=== PATIENT | female | born 1940 | race Caucasian/White ===

== ENCOUNTER 2016-10-13 02:24 | Day surgery (SDC) | payer MEDICARE ==
[~2016-10-13] VITALS: Ht 157.5 cm; Wt 82.0 kg
[~2016-10-13 02:24] MED LIST: ALBU8.5H2 INHALATION; AMLO10TA3 PO; ATEN50TA PO; CITA20TA11 PO; FLUT12AE8 IH; HYDR25TA4 PO; LEVO88TA4 PO; LISI10TA PO; NITR0.4T6 SL; OMEP40CA36 PO; SLO64 PO; VITAMIN D PO
[2016-10-13] MEDS ORDERED: fentaNYL-PF 50 mCg/mL 2 mL Inj IVPUSH PRN (06:00)
[2016-10-13] MEDS ORDERED: Sodium Chloride LOK Flush 10 mL Syringe IV PRN (06:00)
[2016-10-13 10:09] VITALS: BP 138/69; PULSE 65; RESP 16; O2SAT 99
[2016-10-13] MEDS ORDERED: 0.9% Sodium Chloride 1,000 ML IV ONE (11:07)
[2016-10-13 11:24] VITALS: BP 101/56; PULSE 57; RESP 16; O2SAT 98
--- NOTE | 2016-10-13 11:24 | PCM.ENDCOL ---
Colonoscopy Date of Service: Oct 13, 2016 Physician Norberto Milan MD Pre Procedure Diagnosis: Screening Post Procedure Dx & Findings: Polyp hemorrhoids diverticula Procedure Colonoscopy PROCEDURE IN DETAIL: Prep adequate Withdrawal time 13 minutes After unremarkable rectal examination the Olympus video colonoscope was inserted patient's anal canal and was advanced to cecum. Landmarks were identified including the ileocecal valve and appendiceal orifice. Scope was withdrawn systematically. Visualized colonic mucosa showed healthy shiny mucosa with normal healthy-appearing vasculature. In the rectosigmoid junction, there was a 1 mm polyp which was removed completely using cold forceps In the sigmoid colon there are several medium-sized diverticuli. In the rectum retroflexion was done which showed hemorrhoids. Anal canal was inspected carefully on the way out and hemorrhoids noted. Impression Polyp 1. Complete removal Diverticuli Hemorrhoids Recommendation Repeat colonoscopy 5 years Diverticular diet Presedation Assessment Risks and Benefits Informed consent was obtained from the patient after all risks and benefits including but not limited to drug reaction, infection, pain, bleeding, perforation, as well as alternatives were discussed. Patient monitoring Continuous pulse oximetry, cardiac monitoring, blood pressure monitoring, IV access, and oxygen at 2L per nasal cannula. Periprocedural Fentanyl: Fentanyl 100mcg Incrementally Midazolam: Midazolam 5mg Incrementally Complications There were no periprocedural complications identified. Post Procedure Plan Post Procedure Recommendations 1. Restrict activities today. 2. Resume normal activities in the morning. 3. Resume medications. 4. Patient informed of normal post procedure side effects as bloating, drowsiness, blood streaking in the stool. 5. average risk CRCS. If colon polyps come back as: -Hyperplastic- can repeat colonoscopy in 10 years -Tubular adenoma- repeat colonoscopy in 5 years -Tubulovillous/villous adenoma- repeat colonoscopy in 3 years -If any dysplasia- return to clinic as soon as possible 6. Please don't hesitate to call me with any questions. Norberto Milan MD Oct 13, 2016 11:24
[2016-10-13 11:37] VITALS: BP 106/56; PULSE 56; RESP 14; O2SAT 97
[2016-10-13 11:43] VITALS: BP 110/57; PULSE 58; RESP 14; O2SAT 98
--- NOTE | 2016-10-14 11:50 | PATH ---
SURGICAL PATHOLOGY Attending Physician:Norberto Milan M.D. CASE STATUS: Signed Out PATIENT NAME: YELENA PARDO PID: [id number] : 1940 DATE COLLECTED:10/13/2016 17:05 SPECIMEN: Colon, Polyp CLINICAL HISTORY: 1. RECTOSIGMOID POLYP X1 FINAL DIAGNOSIS: 1.RECTOSIGMOID COLON POLYP: CHANGES CONSISTENT WITH SMALL HYPERPLASTIC POLYP. ICD10 K63.5 GROSS DESCRIPTION: The specimen is received in one formalin filled container labeled with the patient's name, sublabeled "rectosigmoid polyp" and consists of a 0.3 x 0.2 x 0.2 CM portion of tissue which is entirely submitted in one cassette. 10/13/2016 DAC MICRO DESCRIPTION: See diagnosis. ICD-9 CODES: CPT CODES: 1: 87859 Electronically Signed Out Herve Lockhart MD [facility] [address], [place] [address] Technical component performed at [facility] [address], [address]
== END 2016-10-13 23:59 | disposition home or self-care (01) ==
LOC: END 02:24
PROVIDERS: ATTEND Internal Medicine
DX: Z12.11 Encounter for screening for malignant neoplasm of colon (principal); K63.5 Polyp of colon; K64.9 Unspecified hemorrhoids; K57.30 Diverticulosis of large intestine without perforation or abscess without bleeding; I11.9 Hypertensive heart disease without heart failure; R73.01 Impaired fasting glucose; E03.9 Hypothyroidism, unspecified; J45.909 Unspecified asthma, uncomplicated; G47.27 Circadian rhythm sleep disorder in conditions classified elsewhere; F32.9 Major depressive disorder, single episode, unspecified; K21.9 Gastro-esophageal reflux disease without esophagitis; F10.21 Alcohol dependence, in remission; Z85.828 Personal history of other malignant neoplasm of skin
CPT/HCPCS: 45380; 88305; 99153; G0500; J2250; J3010; J7030